=== PATIENT | female | born 1995 | race Caucasian/White ===

== ENCOUNTER 2017-02-06 06:43 | Inpatient (IN) | payer OTHER ==
[~2017-02-06] VITALS: Ht 152.4 cm; Wt 58.1 kg
[2017-02-06 07:38] VITALS: BP 116/72
[2017-02-06 08:27] LABS: ABSOLUTE BASOPHIL COUNT 0 /CUMM (0.0-0.2); ABSOLUTE EOSINOPHIL COUNT 0.1 /CUMM (0.0-0.7); ABSOLUTE GRANULOCYTE CT 8.8 /CUMM (1.4-6.5); ABSOLUTE LYMPH COUNT 1.4 /CUMM (1.2-3.4); ABSOLUTE MONOCYTE COUNT 0.6 /CUMM (0.10-0.60); BASOPHIL % 0.4 % (0.0-2.0); EOSINOPHIL % 1.3 % (0-5); GRANULOCYTE % 80.5 % (42.2-75.2); HEMATOCRIT 33.1 % (37-47); MEAN CORPUSCULAR HGB 31.4 PG (27.0-31.0); MEAN CORPUSCULAR VOLUME 92.1 FL (81.0-99.0); MEAN PLATELET VOLUME 9.7 FL (7.4-10.4); PLATELET COUNT 152 /CUMM (130-400); RBC DISTRIBUTION WIDTH 12.5 % (11.5-14.5); RED BLOOD CELL CT 3.59 /CUMM (4.20-5.40); WHITE BLOOD CELL COUNT 10.9 /CUMM (4.8-10.8)
--- NOTE | 2017-02-06 17:10 | History & Physical ---
General Information and HPI MD Statement: I have seen and personally examined TORY DOUGHERTY and documented this H&P. The patient is a 22 year old female at [] weeks and [] days gestation who presented with a chief complaint ofsromat 6 am []. History of Present Illness: Patient presents the childbirth center this morning complaining of rupture membranes at 6 AM grossly ruptured with positive and sure patient had contractions every 2-3 minutes until she received hydration late afternoon now they are weight 37 minutes patient has not changed her cervix she denies fever heart tracing is category 1 Allergies/Medications Allergies: Coded Allergies: No Known Allergies (02/06/17) Past History professional services specialist History : 1 Para: 0 Last Menstrual Period: unknoen Past professional services specialist History: none Surgical History Pertinent Surgical History: none Past Family/Social History Psychosocial History Smoking Status: Former Smoker Review of Systems Review of Systems: negative 13 pt Exam & Diagnostic Data Last 24 Hrs of Vital Signs/I&O Vital Signs Date Time Temp Pulse Resp B/P B/P Pulse O2 O2 Flow FiO2 Mean Ox Delivery Rate 02/06 0738 116/72 Intake & Output 02/06 1600 02/06 0800 07 0000 Intake Total Output Total Balance Patient 128 lb Weight Obstetric Exam Wgt Gained During : 34 Pelvimetry: untested Dilation (cm): 1 Effacement (%): 90 Station: 0 Membranes: SROM Fluid: clear Fundal Height (cm): 34 Multiple Gestation? No Contractions: Q3 to 7 Patient for Induction? No Malik Score Malik Score Response Value Cervix Position: anterior 2 Cervix Consistency: soft 2 Cervix Effacement: >80% 3 Cervix Dilation: 1-2 cm 1 Total 8 Physical Exam: T white female HEENT anicteric Lungs clear Abdomen soft estimated weight 3000 g extremities Extremities negative edema Negative Homans Physical Exam General Appearance Alert Labs Blood Type & Rh: Own negative Antibody Screen: Negative Hct/Hgb & Platelets #1: /to 12 Hct/Hgb & Platelets #2: /169 Rubella: Immune VDRL #1: Nonreactive VDRL #2: Nonreactive HbsAg: Negative HIV #1: Negative HIV #2 Negative 1 Hr P Group B Strep: Negative Initial Ultrasound: Normal Anatomy Ultrasound: Normal Genetic Testing: Normal level I level II at [place] Last 24 Hrs of Labs/Luis: Laboratory Tests 02/06/17 0820: Urine Opiates Screen < 100.00, Methadone Screen < 40, Barbiturate Screen < 60, Ur Phencyclidine Scrn < 6.00, Amphetamines Screen < 100, U Benzodiazepines Scrn < 85, Urine Cocaine Screen < 50, Urine Cannabis Screen < 5.00, Urinalysis MOD H , Urine Color YEL, Urine Clarity CLEAR, Urine pH 6.5, Ur Specific [place] 1.015, Urine Protein NEG, Urine Ketones NEG, Urine Nitrite NEG, Urine Bilirubin NEG, Urine Urobilinogen 0.2, Ur Leukocyte Esterase NEG, Ur Microscopic SEDIMENT EXAMINED, Urine RBC 1-3, Ur Epithelial Cells OCCAS, Urine Bacteria FEW H, Hyaline Casts RARE H, Granular Casts 1-3 H, Urine Mucus FEW, Urine Hemoglobin TRACE-INTACT, Urine Glucose NEG 02/06/17 0750: CBC w Diff NO MAN DIFF REQ, RBC 3.59 L, MCV 92.1, MCH 31.4 H, RDW 12.5, MPV 9.7, Gran % 80.5 H, Lymphocytes % 12.7 L, Monocytes % 5.1, Eosinophils % 1.3, Basophils % 0.4, Absolute Granulocytes 8.8 H, Absolute Lymphocytes 1.4, Absolute Monocytes 0.6, Absolute Eosinophils 0.1, Absolute Basophils 0, PUBS MCHC 34.0 02/06/17 0658: Membrane Rupture POSITIVE Assessment/Plan As Ranked By This Provider Problem List: 1. Core Measures/Miscellaneous Venous Thromboembolism VTE Risk Factors: / VTE Contraindications: No Contraindications VTE Diagnosis: No Beta Danuta Is Beta Danuta a Home Med? No Antibiotics Is Patient on Antibiotics? No
--- NOTE | 2017-02-07 11:56 | PN- Obstetrical ---
Subjective Subjective: FHR REACTIVE Objective Last 24 Hrs of Vital Signs/I&O PITOCIN AT 12 Physical Exam: PLEASANT WF IN LABOR ABD SOFT NT Obstetric Exam Dilation (cm): 3 Effacement (%): 90 Station: 0 Membranes: SROM Fluid: clear Multiple Gestation? No Contractions: Q3 MINUTES Assessment/Plan Assessment/Plan ASSESS TERM SROM PLAN CONT PITOCIN
[2017-02-08 06:00] LABS: ABSOLUTE BASOPHIL COUNT 0 /CUMM (0.0-0.2); ABSOLUTE EOSINOPHIL COUNT 0.1 /CUMM (0.0-0.7); ABSOLUTE GRANULOCYTE CT 5.9 /CUMM (1.4-6.5); ABSOLUTE LYMPH COUNT 1.3 /CUMM (1.2-3.4); ABSOLUTE MONOCYTE COUNT 0.4 /CUMM (0.10-0.60); BASOPHIL % 0.3 % (0.0-2.0); EOSINOPHIL % 1.1 % (0-5); GRANULOCYTE % 76.4 % (42.2-75.2); MEAN CORPUSCULAR HGB 31.4 PG (27.0-31.0); MEAN CORPUSCULAR HGB CONC 33.8 G/DL (33.0-37.0); MEAN PLATELET VOLUME 8.4 FL (7.4-10.4); PLATELET COUNT 110 /CUMM (130-400); RBC DISTRIBUTION WIDTH 12.6 % (11.5-14.5); WHITE BLOOD CELL COUNT 7.8 /CUMM (4.8-10.8)
[2017-02-08 06:06] LABS: HEMATOCRIT 24.8 % (37-47); RED BLOOD CELL CT 2.66 /CUMM (4.20-5.40)
[2017-02-08 11:11] LABS: ABSOLUTE BASOPHIL COUNT 0 /CUMM (0.0-0.2); ABSOLUTE EOSINOPHIL COUNT 0.1 /CUMM (0.0-0.7); ABSOLUTE GRANULOCYTE CT 6.2 /CUMM (1.4-6.5); ABSOLUTE LYMPH COUNT 1.1 /CUMM (1.2-3.4); ABSOLUTE MONOCYTE COUNT 0.5 /CUMM (0.10-0.60); BASOPHIL % 0.3 % (0.0-2.0); EOSINOPHIL % 0.8 % (0-5); GRANULOCYTE % 79.1 % (42.2-75.2); HEMATOCRIT 25.5 % (37-47); MEAN CORPUSCULAR HGB 31.1 PG (27.0-31.0); MEAN CORPUSCULAR HGB CONC 33.8 G/DL (33.0-37.0); MEAN CORPUSCULAR VOLUME 92.2 FL (81.0-99.0); MEAN PLATELET VOLUME 9.9 FL (7.4-10.4); PLATELET COUNT 108 /CUMM (130-400); RBC DISTRIBUTION WIDTH 12.4 % (11.5-14.5); RED BLOOD CELL CT 2.76 /CUMM (4.20-5.40); WHITE BLOOD CELL COUNT 7.8 /CUMM (4.8-10.8)
--- NOTE | 2017-02-08 13:11 | PN- Post Delivery/GYN ---
Subjective Subjective: SURGERY REVIEWED WITH PT Objective Last 24 Hrs of Vital Signs/I&O Vital Signs Date Time Temp Pulse Resp B/P B/P Pulse O2 O2 Flow FiO2 Mean Ox Delivery Rate 02/07 190 Room Air Physical Exam: PE PETITE WF IN NAD ABD SOFT NT INCISION CDI FUNDUS FIRMNT LOCHIA MINIMAL EXT-EDEMA -HOMANS Assessment/Plan Assessment/Plan ASSESS S/P C/S ANEMIA PLAN CHECK CBC
[2017-02-09 12:27] LABS: ABSOLUTE BASOPHIL COUNT 0 /CUMM (0.0-0.2); ABSOLUTE EOSINOPHIL COUNT 0.1 /CUMM (0.0-0.7); ABSOLUTE GRANULOCYTE CT 5.6 /CUMM (1.4-6.5); ABSOLUTE LYMPH COUNT 0.9 /CUMM (1.2-3.4); ABSOLUTE MONOCYTE COUNT 0.3 /CUMM (0.10-0.60); BASOPHIL % 0.4 % (0.0-2.0); EOSINOPHIL % 1.3 % (0-5); GRANULOCYTE % 80.2 % (42.2-75.2); HEMATOCRIT 27.1 % (37-47); MEAN CORPUSCULAR HGB CONC 33.7 G/DL (33.0-37.0); MEAN CORPUSCULAR VOLUME 92.1 FL (81.0-99.0); MEAN PLATELET VOLUME 9.8 FL (7.4-10.4); PLATELET COUNT 134 /CUMM (130-400); RBC DISTRIBUTION WIDTH 12.8 % (11.5-14.5); RED BLOOD CELL CT 2.94 /CUMM (4.20-5.40)
--- NOTE | 2017-02-09 12:35 | PN- Post Delivery/GYN ---
Subjective Subjective: No complaints multiple questions regarding circumcision patient has decreased pain today no dizziness Objective Last 24 Hrs of Vital Signs/I&O As per her paper chart Physical Exam: Pale white female HEENT anicteric lungs clear heart S1 and S2 abdomen soft incision clean dry and intact fundus firm nontender lochia minimal extremities negative edema negative Homans Assessment/Plan Assessment/Plan Assessment status post section anemia plan check CB C continue postop care
[2017-02-10] MEDS ORDERED: PERCOCET 5-3251 EACH PO (09:12)
[2017-02-10] MEDS ORDERED: IBUPROFEN800 M1 PO (09:12)
--- NOTE | 2017-02-14 14:24 | Operative Report ---
Operative/Inv Procedure Report Surgery Date: 02/06/17 Name of Procedure: Primary low flap transverse section via Pfannenstiel skin incision Pre-Operative Diagnosis: Term arrest of dilatation Post-Operative Diagnosis: Same contracted pelvis Estimated Blood Loss: 500 Surgeon/Casting Machine Control Board Operator: MARTITA BOJORQUEZ,CRISTINA Thompson and Dr. Venkat Martines Anesthesia: block Operative/Procedure Note Note: The patient was seen the operating room placed on position after adequate anesthesia patient placed in dorsolithotomy position the vagina from dorsal fashion bladder was catheterized patient was returned spine position this point after adequate skin testing for spinal anesthesia the skin was cut carried down to rectus fascia which was cut in curvilinear fashion either direction was carried down to the peritoneum which was opened bluntly low blade the Senath was placed lower and incision the visceral peritoneum of the uterus dissected anteriorly a bladder flap had been developed and the bladder blade was replaced to protect the bladder at this point in the lower uterine segment use nicked into with the back of knife 1 sponge moved from the field. was delivered over the abdominal wall suction well until clear the cord was doubly clamped and cut was handed to be Lin waiting delivering to aid in resuscitation since was manually noted to be intact was wiped clean with 2R last insurance free of adherent membranes oversewn rowlock suture of 0 indicated interrupted [id number]'s of 0 hemostasis was apparent uterus returned to abdominal cavity irrigated copious amounts warm sounds are clear the uterus have injected with intramyometrial Pitocin in uterine contractility intravenous Pitocin was used aid in uterine contractility which was apparent peritoneum was reapproximated 0 the fascia was reapproximated to the incisions of #1 the skin was reapproximated hong at the end the case counts correct the urine was clear other infant was transferred recovery room awake alert thank you
== END 2017-02-10 11:00 | DRG 540 ==
LOC: CBCO 06:43 → GNO 07:21 → CBCO 02-10 08:00 → GNO 02-10 11:00
PROVIDERS: ADMIT Specialist
PROC: 10D00Z1 Extraction of Products of Conception, Low, Open Approach (ICD-10-PCS; principal; 2017-02-07)
DX: O63.0 Prolonged first stage (of labor) (principal); O90.81 Anemia of the puerperium; Z3A.39 39 weeks gestation of pregnancy; Z37.0 Single live birth
CPT/HCPCS: GNOP; GNOS; 36415; 80307; 81001; 84112; G0463; J0290; J0690; J1170; J1650; J2270; J2790; J7120